=== PATIENT | male | born 1995 | race Hispanic/Latino ===

== ENCOUNTER → 2021-09-01 | Day surgery (SDC) | payer OTHER ==
[~2021-09-01] MED LIST: BUPIVACAINE HCL 0.5% INJ 30 ML VIAL INJ ONE; CEPHALEXIN500 MG PO; DEXAMETHASONE SOD PHOS INJ 4 MG/ML SDV ONE; FENTANYL CITRATE/PF 100MCG/2 ML INJ ONE; MEPERIDINE HCL INJ 25 MG/ML VIAL ONE; MIDAZOLAM HCL 2 MG/2 ML VIAL ONE; MULTI-VITAMIN1 EACH PO; Morphine 2mg Syringe 2 MG/ML SYR ONE; PROBIOTIC & AC1 EACH PO; SODIUM CHLORIDE 0.9% 50ML 100 ML ONE; ULTRAM50 MG PO
[2021-09-01 13:05] VITALS: BP 117/64
== END | disposition home or self-care (01) ==
LOC: OR 09:16
PROVIDERS: ATTEND Podiatrist Foot Surgery
DX: S92.351A Displaced fracture of fifth metatarsal bone, right foot, initial encounter for closed fracture (principal); S93.114A Dislocation of interphalangeal joint of right lesser toe(s), initial encounter; X58.XXXA Exposure to other specified factors, initial encounter; Z01.812 Encounter for preprocedural laboratory examination; Z20.822 Contact with and (suspected) exposure to COVID-19
CPT/HCPCS: 28485; 76000; C1713; J0690; J1100; J2175; J2250; J2270; J3010; U0002